=== PATIENT | female | born 1930 | race Caucasian/White ===

== ENCOUNTER 2017-12-27 09:44 | Emergency (ER) | payer OTHER ==
[~2017-12-27] VITALS: Ht 142.2 cm; Wt 53.6 kg
[~2017-12-27 09:44] MED LIST: ASPIR 8181 M1 PO; ATORVASTATIN CA20 MG PO; KEFLEX500 MG PO; LORAZEPAM0.5 MG PO; NORVASC5 MG PO; OCUVITE LUTEIN1 EACH PO; PRINIVIL10 MG PO
[2017-12-27] MEDS ORDERED: DONEPEZIL HCL5 MG PO (16:44)
[2017-12-27] MEDS ORDERED: CLONAZEPAM0.125 MG PO (16:44)
[2017-12-27] MEDS ORDERED: SERTRALINE HCL25 MG PO (16:44)
[2017-12-27 16:46] VITALS: BP 169/89
[2017-12-27] MEDS ORDERED: ASPIR 8181 M1 PO (17:51)
[2017-12-27] MEDS ORDERED: OCUVITE LUTEIN1 EACH PO (17:52)
[2017-12-27] MEDS ORDERED: NORVASC5 MG PO (17:52)
[2017-12-28] MEDS ORDERED: BENADRYL ALLERG25 MG PO (11:25)
== END 2017-12-27 17:03 | disposition hospice, inpatient (51) ==
LOC: EME 09:44
DX: R26.89 Other abnormalities of gait and mobility (principal); S90.02XA Contusion of left ankle, initial encounter; S80.02XA Contusion of left knee, initial encounter; S70.02XA Contusion of left hip, initial encounter; W18.30XA Fall on same level, unspecified, initial encounter; E78.5 Hyperlipidemia, unspecified; I10 Essential (primary) hypertension; Z87.442 Personal history of urinary calculi; F17.200 Nicotine dependence, unspecified, uncomplicated
CPT/HCPCS: 73060; 73502; 73590; 93971; 99281; 99284; G8978 GP CK; G8979 GP CI; G8980 GP CK; G8987 CK; G8988 GO CJ; G8989 GO CK

== ENCOUNTER 2017-12-27 16:18 | Inpatient (IN) | payer OTHER ==
[~2017-12-27] VITALS: Ht 154.9 cm; Wt 61.3 kg
[2017-12-27] MEDS ORDERED: CLONAZEPAM0.125 MG PO (16:44)
[2017-12-27] MEDS ORDERED: DONEPEZIL HCL5 MG PO (16:44)
[2017-12-27] MEDS ORDERED: SERTRALINE HCL25 MG PO (16:44)
[2017-12-27 17:50] VITALS: BP 184/81
[2017-12-27] MEDS ORDERED: ASPIR 8181 M1 PO (17:51)
[2017-12-27] MEDS ORDERED: OCUVITE LUTEIN1 EACH PO (17:52)
[2017-12-27] MEDS ORDERED: NORVASC5 MG PO (17:52)
[2017-12-27 23:35] VITALS: BP 154/69
[2017-12-28 05:33] VITALS: BP 143/65
[2017-12-28 06:33] LABS: HEMATOCRIT 34.2 % (36.0-46.0); HEMOGLOBIN 11.5 G/DL (11.9-15.5); MCH 32.5 PG (29.0-34.0); MCHC 33.6 G/DL (30.0-36.0); MCV 96.6 FL (83-99); PLATELET COUNT 208 K/uL (156-360); RBC DIS.WIDTH-CV 12.4 % (11.8-14.6); RBC DIS.WIDTH-SD 44.7 % (39-53); RED BLOOD COUNT 3.54 M/uL (3.80-5.20); WHITE BLOOD COUNT 5.2 K/uL (4.1-10.2)
[2017-12-28 07:03] LABS: ALBUMIN 3.3 G/DL (3.2-4.8); ALKALINE PHOSPHATASE 53 IU/L (3-129); ALT (GPT) 8 IU/L (3-49); AST (GOT) 15 IU/L (2-34); CHLORIDE 108 MEQ/L (99-109); CREATININE 0.8 MG/DL (0.6-1.3); GFR ESTIMATE (CALCULATED) > 59 mL/min/; GLUCOSE 93 mg/dL (70-99); SODIUM 143 MEQ/L (136-147); TOTAL BILIRUBIN 0.6 MG/DL (0.0-1.0); TOTAL PROTEIN 5.1 G/DL (6.4-8.3); UREA NITROGEN (BUN) 22 mg/dL (9-23)
[2017-12-28 08:31] VITALS: BP 149/67
[2017-12-28] MEDS ORDERED: BENADRYL ALLERG25 MG PO (11:25)
[2017-12-28 15:13] VITALS: BP 146/67
[2017-12-29 05:03] VITALS: BP 153/67
[2017-12-29 08:24] VITALS: BP 142/65
[2017-12-29 15:32] VITALS: BP 138/63
[2017-12-29 18:50] LABS: APPEARANCE CLEAR ((CLEAR)); BILIRUBIN NEGATIVE; BLOOD MODERATE; COLOR YELLOW ((YELLOW)); GLUCOSE (STRIP) NEGATIVE; KETONES NEGATIVE; LEUKOCYTES NEGATIVE; NITRITE NEGATIVE; PROTEIN (STRIP) NEGATIVE; SPECIFIC GRAVITY 1.012 (1.000-1.030); UROBILINOGEN 0.2 MG/DL (0.2-1.0)
[2017-12-29 19:15] LABS: BACTERIA NONE SEEN /HPF; EPITHELIAL CELLS RARE /HPF; MUCUS NONE SEEN /LPF; WHITE BLOOD CELLS 0-5 /HPF (0-5)
[2017-12-30 06:40] VITALS: BP 153/76
[2017-12-30 15:18] VITALS: BP 136/65
[2017-12-31 05:16] VITALS: BP 146/77
[2017-12-31 15:08] VITALS: BP 154/67
[2018-01-01 04:41] VITALS: BP 138/63
[2018-01-01 15:04] VITALS: BP 131/60
[2018-01-02 05:38] VITALS: BP 159/42
[2018-01-02 06:01] VITALS: BP 142/65
[2018-01-02 08:43] VITALS: BP 143/63
[2018-01-02 15:30] VITALS: BP 158/68
[2018-01-03 06:03] VITALS: BP 125/62
[2018-01-03 15:05] VITALS: BP 127/55; BP 96/55
[2018-01-04 05:06] VITALS: BP 139/71
[2018-01-04 06:26] LABS: BASOPHIL (%) 0.3 % (0-1); EOSINOPHIL (%) 0.4 % (0-5); HEMATOCRIT 32.5 % (36.0-46.0); HEMOGLOBIN 11.1 G/DL (11.9-15.5); IMMATURE GRANULOCYTE (%) 0.4 % (0.0-0.7); LYMPHOCYTE (%) 9.2 % (15-42); LYMPHOCYTE COUNT 0.7 K/uL (1.0-2.8); MCH 32.2 PG (29.0-34.0); MCHC 34.2 G/DL (30.0-36.0); MCV 94.2 FL (83-99); MONOCYTE (%) 13.1 % (3-12); NEUTROPHIL (%) 76.6 % (45-76); NEUTROPHIL COUNT 5.6 K/uL (1.8-6.4); PLATELET COUNT 238 K/uL (156-360); RBC DIS.WIDTH-CV 12.2 % (11.8-14.6); RBC DIS.WIDTH-SD 42.5 % (39-53); RED BLOOD COUNT 3.45 M/uL (3.80-5.20); WHITE BLOOD COUNT 7.3 K/uL (4.1-10.2)
[2018-01-04 06:56] LABS: CHLORIDE 102 MEQ/L (99-109); CREATININE 0.6 MG/DL (0.6-1.3); GFR ESTIMATE (CALCULATED) > 59 mL/min/; GLUCOSE 120 mg/dL (70-99); POTASSIUM 3.7 MEQ/L (3.7-5.4); SODIUM 138 MEQ/L (136-147); UREA NITROGEN (BUN) 19 mg/dL (9-23)
[2018-01-04 08:18] VITALS: BP 148/59
[2018-01-04 08:35] LABS: THYROTROPIN (TSH) 0.87 MIU/L (0.4-5.5)
[2018-01-04 09:00] LABS: FOLIC ACID (FOLATE) > 22.0 NG/ML (5.0-22.0)
[2018-01-04 15:27] VITALS: BP 138/62
[2018-01-05 06:23] VITALS: BP 138/68
[2018-01-05 07:56] VITALS: BP 153/65
[2018-01-05 15:58] VITALS: BP 136/61
[2018-01-06 04:20] VITALS: BP 131/62
[2018-01-06] MEDS ORDERED: ASPIRIN325 MG PO (11:31)
[2018-01-06] MEDS ORDERED: Salonpas 4% Patch TD (11:31)
[2018-01-06] MEDS ORDERED: DONEPEZIL HCL5 MG PO (11:31)
[2018-01-06] MEDS ORDERED: AMLODIPINE BESYL5 MG PO (13:57)
== END 2018-01-06 14:00 | disposition home health service (06) | DRG 563 ==
LOC: 3WEST 16:18 → ENPENDDIS 01-06 → 3WEST 01-06 14:00
PROVIDERS: Family Medicine Sports Medicine; Physical Medicine & Rehabilitation Pain Medicine
PROC: F07M0ZZ Range of Motion and Joint Mobility Treatment of Musculoskeletal System - Whole Body (ICD-10-PCS; principal; 2017-12-27)
DX: S82.142A Displaced bicondylar fracture of left tibia, initial encounter for closed fracture (principal); W18.30XA Fall on same level, unspecified, initial encounter; Y92.009 Unspecified place in unspecified non-institutional (private) residence as the place of occurrence of the external cause; M79.662 Pain in left lower leg; M85.80 Other specified disorders of bone density and structure, unspecified site; R53.1 Weakness; M25.552 Pain in left hip; M25.562 Pain in left knee; R26.2 Difficulty in walking, not elsewhere classified; I10 Essential (primary) hypertension; H54.8 Legal blindness, as defined in USA; F03.90 Unspecified dementia, unspecified severity, without behavioral disturbance, psychotic disturbance, mood disturbance, and anxiety; R32 Unspecified urinary incontinence; M71.20 Synovial cyst of popliteal space [Baker], unspecified knee; E78.00 Pure hypercholesterolemia, unspecified; H35.30 Unspecified macular degeneration; Z91.81 History of falling; Z60.2 Problems related to living alone
CPT/HCPCS: 73060; 73502; 73560; 73590; 73700; 80048; 80053; 81003; 82607; 82746; 84443; 85025; 85027; 87086; 93971; 97110 GO; 97530 GP; 99281; 99284; A6214; G8978 GP CK; G8979 GP CI; G8980 GP CK; G8987 CK; G8988 GO CJ; G8989 GO CK; J1650